=== PATIENT | female | born 1965 | race Caucasian/White ===

== ENCOUNTER 2016-10-05 06:15 | Emergency (ER) | payer SELFPAY ==
[~2016-10-05] VITALS: Ht 162.6 cm; Wt 97.1 kg
[~2016-10-05 06:15] MED LIST: BISO1TAB41; IBP600T1
[2016-10-05] MEDS ORDERED: LORazepam INJ 2 MG/ML (ATIVAN) VIAL ONE (06:21)
[2016-10-05] MEDS ORDERED: NS IV 1000 ML 1,000 ML ONE (06:21)
[2016-10-05 06:29] LABS: BASOPHILS % (AUTO) 0 % (0-10); EOSINOPHILS # (AUTO) 0.1 10^3/uL (0.0-0.3); EOSINOPHILS % (AUTO) 2 % (0-10); LYMPHOCYTES # (AUTO) 2.3 X 10^3 (1.0-4.0); LYMPHOCYTES % (AUTO) 26 % (12-44); MEAN CORPUSCULAR HEMOGLOBIN 29 PG (25-34); MEAN CORPUSCULAR HGB CONC 34 G/DL (32-36); MEAN CORPUSCULAR VOLUME 87 FL (80-99); MONOCYTES # (AUTO) 0.5 X 10^3 (0.0-1.0); MONOCYTES % (AUTO) 6 % (0-12); NEUTROPHILS % (AUTO) 67 % (42-75); PLATELET COUNT 322 10^3/uL (130-400); RED BLOOD COUNT 4.82 10^6/uL (4.35-5.85); WHITE BLOOD COUNT 9.1 10^3/uL (4.3-11.0)
[2016-10-05] MEDS ORDERED: NS 1000 ML IV BAG IV ONE (06:30)
[2016-10-05] MEDS ORDERED: LORazepam INJ 2 MG/ML (ATIVAN) VIAL IV ONE (06:30)
--- NOTE | 2016-10-05 06:38 | ED Neurological Problem ---
General Chief Complaint: Neurological Problems Stated Complaint: SEIZURE Source: patient, family, EMS Exam Limitations: no limitations History of Present Illness Time seen by provider: 06:15 Initial Comments Patient's eyes rolled back and patient began to shake all over 30 minutes prior to arrival. Symptoms lasted around a minute and patient was briefly confused but quickly came around. She was sitting at home when symptoms began. Symptoms recurred and family called 911. Patient was shaking in her extremities on arrival but was conscious. She did not have any injury such as a tongue laceration. She was not incontinent. Patient has been up for almost 24 hours. She has not eaten much. She has been drinking beer. She denies head trauma. She denies drug use. Paramedics gave intranasal Versed in route Allergies and Home Medications Allergies Coded Allergies: No Known Drug Allergies (Unverified Allergy, Mild, 04/01/09) Home Medications Bisoprol/Hydrochlorothiazide 1 Tab Tablet (Reported) Ibuprofen 600 Mg Tab (Reported) Constitutional: malaise weakness Eyes: No Symptoms Reported Ears, Nose, Mouth, Throat: no symptoms reported Respiratory: no symptoms reported Cardiovascular: no symptoms reported Musculoskeletal: no symptoms reported Psychiatric/Neurological: Tonic Clonic Seizures Weakness Endocrine: No Symptoms Reported All Other Systems Reviewed Negative Unless Noted: Yes Past Vwilvic-Qrozby-Owojeb Hx Patient Social History Recent Foreign Travel: No Contact w/Someone Who Travel: No Reviewed Nursing Assessment Reviewed/Agree w Nursing PMH: Yes Physical Exam Vital Signs Vital Sign - Last 12Hours 10/05/16 06:33 Temp 97.6 Pulse 97 Resp 14 Pulse Ox 96 O2 Delivery Nasal Cannula Capillary Refill : General Appearance: WD/WN mild distress other (jerking of legs, nonrhythmic. awake, answers questions) HEENT: pharynx normal Neck: supple Respiratory: lungs clear Cardiovascular: regular rate, rhythm Gastrointestinal: non tender soft Back: normal inspection Extremities: normal inspection Neurologic/Psychiatric: alert normal mood/affect Crainal Nerves: normal hearing normal speech PERRL Motor/Sensory: no motor deficit no sensory deficit Skin: normal color warm/dry Progress/Results/Core Measures Results/Orders Lab Results Laboratory Tests Test 10/05/16 06:20 10/05/16 07:10 Range/Units Acetaminophen Level < 10 L 10-30 UG/ML Alanine Aminotransferase (ALT/SGPT) 18 0-55 U/L Albumin 4.8 H 3.2-4.5 G/DL Alkaline Phosphatase 70 40-136 U/L Anion Gap 17 H 5-14 MMOL/L Aspartate Amino Transf (AST/SGOT) 19 5-34 U/L BUN/Creatinine Ratio 11 Basophils # (Auto) 0.0 0.0-0.1 10^3/uL Basophils (%) (Auto) 0 0-10 % Blood Urea Nitrogen 10 7-18 MG/DL Calcium Level 9.4 8.5-10.1 MG/DL Carbon Dioxide Level 20 L 21-32 MMOL/L Chloride Level 107 98-107 MMOL/L Creatinine 0.89 0.60-1.30 MG/DL Eosinophils # (Auto) 0.1 0.0-0.3 10^3/uL Eosinophils (%) (Auto) 2 0-10 % Estimat Glomerular Filtration Rate > 60 Glucose Level 117 H 70-105 MG/DL Hematocrit 42 35-52 % Hemoglobin 14.1 11.5-16.0 G/DL Lymphocytes # (Auto) 2.3 1.0-4.0 X 10^3 Lymphocytes (%) (Auto) 26 12-44 % Magnesium Level 2.8 H 1.8-2.4 MG/DL Mean Corpuscular Hemoglobin 29 25-34 PG Mean Corpuscular Hemoglobin Concent 34 32-36 G/DL Mean Corpuscular Volume 87 80-99 FL Mean Platelet Volume 10.0 7.4-10.4 FL Monocytes # (Auto) 0.5 0.0-1.0 X 10^3 Monocytes (%) (Auto) 6 0-12 % Neutrophils # (Auto) 6.0 1.8-7.8 X 10^3 Neutrophils (%) (Auto) 67 42-75 % Platelet Count 322 130-400 10^3/uL Potassium Level 3.9 3.6-5.0 MMOL/L Red Blood Count 4.82 4.35-5.85 10^6/uL Red Cell Distribution Width 14.0 10.0-14.5 % Salicylates Level < 5.0 L 5.0-20.0 MG/DL Serum Alcohol 189 H <10 MG/DL Sodium Level 144 135-145 MMOL/L Total Bilirubin 0.2 0.1-1.0 MG/DL Total Protein 8.5 H 6.4-8.2 G/DL White Blood Count 9.1 4.3-11.0 10^3/uL Ur Tricyclic Antidepressants Screen NEGATIVE NEGATIVE Urine Amphetamines Screen NEGATIVE NEGATIVE Urine Bacteria FEW H /HPF Urine Barbiturates Screen NEGATIVE NEGATIVE Urine Benzodiazepines Screen NEGATIVE NEGATIVE Urine Bilirubin NEGATIVE NEGATIVE Urine Cannabinoids Screen NEGATIVE NEGATIVE Urine Casts PRESENT /LPF Urine Clarity CLEAR Urine Cocaine Screen NEGATIVE NEGATIVE Urine Color YELLOW Urine Crystals NONE /LPF Urine Culture Indicated NO Urine Glucose (UA) NEGATIVE NEGATIVE Urine Granular Casts 5-10 H /LPF Urine Ketones NEGATIVE NEGATIVE Urine Leukocyte Esterase 1+ H NEGATIVE Urine Methadone Screen NEGATIVE NEGATIVE Urine Methamphetamines Screen NEGATIVE NEGATIVE Urine Mucus NEGATIVE /LPF Urine Nitrite NEGATIVE NEGATIVE Urine Opiates Screen NEGATIVE NEGATIVE Urine Oxycodone Screen NEGATIVE NEGATIVE Urine Phencyclidine Screen NEGATIVE NEGATIVE Urine Propoxyphene Screen NEGATIVE NEGATIVE Urine Protein 3+ H NEGATIVE Urine RBC 0-2 /HPF Urine RBC (Auto) 1+ H NEGATIVE Urine Specific [place] 1.020 1.016-1.022 Urine Squamous Epithelial Cells 2-5 /HPF Urine Urobilinogen NORMAL NORMAL MG/DL Urine WBC 2-5 /HPF Urine pH 5 5-9 My Orders Orders-ARNALDO VASQUEZ MD Acetaminophen (10/05/16 06:22) Alcohol (10/05/16 06:22) Cbc With Automated Diff (10/05/16 06:22) Comprehensive Metabolic Panel (10/05/16 06:22) Drug Screen Stat (Urine) (10/05/16 06:22) Magnesium (10/05/16 06:22) Salicylate (10/05/16 06:22) Ua Culture If Indicated (10/05/16 06:22) Ct Head Wo (10/05/16 06:22) Ns Iv 1000 Ml (Sodium Chloride 0.9%) (10/05/16 06:30) Lorazepam Injection (Ativan Injection) (10/05/16 06:30) Medications Given in ED Current Medications Medications Dose Ordered Sig/Colt Route Start Time Stop Time Status Last Admin Dose Admin Lorazepam 1 mg ONCE ONCE IV 10/05/16 06:30 10/05/16 06:31 DC 10/05/16 06:29 1 MG Sodium Chloride 1,000 ml ONCE ONCE IV 10/05/16 06:30 2 06:31 DC 10/05/16 06:29 1,000 ML Vital Signs/I&O Vital Sign - Last 12Hours 10/05/16 06:33 Temp 97.6 Pulse 97 Resp 14 B/P Pulse Ox 96 O2 Delivery Nasal Cannula Progress Note : Time: 07:25 Progress Note Symptoms improved after IV Ativan given in the ER. Awake alert no distress. Diagnostic Imaging Diagonstic Imaging: CT Plain Films/CT/US/NM/MRI: head Comments No acute disease Departure Communication Progress Notes 0745: Awake alert no apparent distress. No seizure activity while in the ER. Test results discussed with patient and family. Impression Impression: Primary Impression: Seizure Disposition: 01 HOME, SELF-CARE Condition: Stable Departure-Patient Inst. Decision time for Depature: 07:27 Referrals: MARYBEL GUTIERREZ MD (PCP) Primary Care Physician Patient Instructions: Seizures, Adult (DC) ARNALDO VASQUEZ MD Oct 05, 2016 06:38
[2016-10-05 06:56] LABS: ACETAMINOPHEN < 10 UG/ML (10-30); ALANINE AMINOTRANSFERASE 18 U/L (0-55); ALBUMIN 4.8 G/DL (3.2-4.5); ALCOHOL 189 MG/DL (<10); ANION GAP 17 MMOL/L (5-14); ASPARTATE AMINO TRANSFERASE 19 U/L (5-34); BILIRUBIN,TOTAL 0.2 MG/DL (0.1-1.0); BLOOD UREA NITROGEN 10 MG/DL (7-18); BUN/CREATININE RATIO 11; CALCIUM 9.4 MG/DL (8.5-10.1); CARBON DIOXIDE 20 MMOL/L (21-32); CHLORIDE 107 MMOL/L (98-107); CREATININE SERUM 0.89 MG/DL (0.60-1.30); GFR ESTIMATED > 60; GLUCOSE 117 MG/DL (70-105); MAGNESIUM 2.8 MG/DL (1.8-2.4); POTASSIUM 3.9 MMOL/L (3.6-5.0); SALICYLATE < 5.0 MG/DL (5.0-20.0); SODIUM 144 MMOL/L (135-145); TOTAL PROTEIN 8.5 G/DL (6.4-8.2)
[2016-10-05 07:24] LABS: BILIRUBIN,URINE NEGATIVE (NEGATIVE); KETONES,URINE NEGATIVE (NEGATIVE); LEUKOCYTE ESTERASE ,URINE 1+ (NEGATIVE); NITRITE,URINE NEGATIVE (NEGATIVE); PH,URINE 5 (5-9); PROTEIN,URINE 3+ (NEGATIVE); UROBILINOGEN,URINE NORMAL (NORMAL)
--- NOTE | 2016-10-05 08:01 | Diagnostic Imaging Report ---
PROCEDURE: CT head without contrast. TECHNIQUE: Multiple contiguous axial images were obtained through the brain without the use of intravenous contrast. INDICATION: Seizures. COMPARISON: None FINDINGS: Examination compromised by some patient motion artifact. There is no midline shift or mass effect. The ventricles and sulci are unremarkable. No evidence for acute intracranial hemorrhage, abnormal extra-axial fluid collections or cerebral edema is present. The basilar cisterns are unremarkable. The visualized paranasal sinuses and mastoid air cells are clear. The bony calvarium is intact. IMPRESSION: Negative appearing noncontrast CT of the head. If further assessment for potential seizure foci desired, MRI would be recommended. Dictated by: Dictated on workstation # [id number]
[2016-10-05 08:09] VITALS: BP 123/86
== END 2016-10-05 08:09 | disposition home or self-care (01) ==
LOC: EDUNIT# 06:15 → ER 06:20
DX: R56.9 Unspecified convulsions (principal); F10.129 Alcohol abuse with intoxication, unspecified; Y90.6 Blood alcohol level of 120-199 mg/100 ml
CPT/HCPCS: 36415; 70450; 80053; 80306; 80320; 80329; 81000; 83735; 85025; 96361; 96374

== ENCOUNTER → 2022-11-01 | Outpatient (CLI) | payer OTHER ==
--- NOTE | 2022-11-01 09:43 | Diagnostic Imaging Report ---
EXAMINATION: US Abdomen limited. TECHNIQUE: Multiple real-time grayscale images were obtained over the right lower quadrant in various projections. REASON FOR EXAM: Right lower quadrant/inguinal pain. Concern for hernia. COMPARISON: None. FINDINGS: Within the right inguinal region there appears to be a defect in the musculature of the inguinal canal with protrusion of soft tissue. No obvious loops of bowel are contained within this defect. IMPRESSION: 1. Findings suggestive of small fat-containing right inguinal hernia. No evidence of loops of bowel are seen within this defect. Recommend correlation with physical exam and follow-up as indicated. Dictated by: Dictated on workstation # [id number]
== END ==
LOC: RAD 06:47
PROVIDERS: ATTEND Surgery
DX: R10.31 Right lower quadrant pain (principal)
CPT/HCPCS: 76705

== ENCOUNTER 2022-11-24 05:28 | Outpatient (CLI) | payer OTHER ==
[~2022-11-24] VITALS: Ht 172.7 cm; Wt 90.3 kg
[2022-11-25] MEDS ORDERED: LEVO25CA4 PO (10:37)
[2022-11-25] MEDS ORDERED: DESV50TA PO (12:28)
[2022-11-25] MEDS ORDERED: ACET-3075 PO (12:28)
[2022-11-25] MEDS ORDERED: OMEP20TA33 PO (12:28)
== END 2022-11-25 12:51 | disposition home or self-care (01) ==
LOC: PREOP 05:28
PROVIDERS: ATTEND Surgery
DX: Z01.818 Encounter for other preprocedural examination (principal)

== ENCOUNTER 2022-12-01 07:00 | Day surgery (SDC) | payer OTHER ==
[2022-12-01] VITALS (11 sets, daily range): BP systolic 124–155; BP diastolic 81–111
[~2022-12-01] VITALS: Ht 172.7 cm; Wt 90.3 kg
[~2022-12-01 07:00] MED LIST changes: +ACET-3075 PO; +DESV50TA PO; +LEVO25CA4 PO; +OMEP20TA33 PO
[2022-12-01] MEDS ORDERED: BUP/EPI 0.5% 1:200,000 (SENSORCAINE) 30 ML VIAL ONE (07:13)
[2022-12-01] MEDS: LACTATED RINGERS 1,000 ML IV PRN ×2 (07:30→09:48)
[2022-12-01] MEDS ORDERED: ceFAZolin INJECTION 2,000 MG in NS (IVPB) 50 ML IV ONE (07:30)
[2022-12-01] MEDS ORDERED: fentaNYL INJ 100 MCG/2 ML AMP ONE (07:32)
[2022-12-01] MEDS ORDERED: MIDAZOLAM 2 MG/2 ML (VERSED) VIAL ONE (07:33)
--- NOTE | 2022-12-01 07:58 | Progress Note-Pre Operative ---
Pre-Operative Progress Note Date H&P Reviewed: Dec 01, 2022 Time H&P Reviewed: 07:45 History & Physical: H&P Reviewed, Patient Examed, No changes noted Pre-Operative Diagnosis: right inguinal hernia BUDDY DOSS DO Dec 01, 2022 07:58
[2022-12-01] MEDS ORDERED: BUP/EPI 0.5% 1:200,000 (SENSORCAINE) 30 ML VIAL INJ ONE (08:45)
[2022-12-01] MEDS ORDERED: LABETALOL HCL 20 MG/4 ML VIAL ONE (09:34)
[2022-12-01] MEDS ORDERED: NEOSTIGMINE (BLOXIVERZ ) 1 MG/1ML 10 ML VIAL ONE (09:34)
[2022-12-01] MEDS ORDERED: proPOfol 200 MG/20 ML (DIPRIVAN) VIAL IV ONE (09:34)
[2022-12-01] MEDS ORDERED: LIDOCAINE PF 2% 5 ML (XYLOCAINE) VIAL ONE (09:34)
[2022-12-01] MEDS ORDERED: GLYCOPYRROLATE 0.2 MG/ML (ROBINUL) 2 ML VIAL ONE (09:34)
[2022-12-01] MEDS ORDERED: ROCURONIUM 50 MG/5 ML (ZEMURON) VIAL IV ONE (09:34)
[2022-12-01] MEDS ORDERED: ONDANSETRON 4 MG/2 ML (SDV) Z0FRAN ONE (09:34)
[2022-12-01] MEDS ORDERED: SEVOFLURANE (ULTANE) 15 ML INHAL SOLN ONE (10:03)
--- NOTE | 2022-12-01 10:19 | Progress Note-Post Operative ---
Post-Operative Progess Note Surgeon (s)/Weigher And Grader (s) Surgeon BUDDY DOSS DO Weigher And Grader: Dr. Reed Pre-Operative Diagnosis right inguinal hernia Post-Operative Diagnosis incarcerated femoral hernia indirect inguinal hernia Procedure & Operative Findings Date of Procedure 12/01/22 Procedure Performed/Findings robotic right incarcerated femoral and indirect inguinal hernia repair Anesthesia Type general Estimated Blood Loss Estimated blood loss (mL): minimal Specimens/Packing Specimens Removed femoral hernia contents BUDDY DOSS DO Dec 01, 2022 10:19
--- NOTE | 2022-12-01 10:22 | Anesthesia-General Post-Op ---
General Patient Condition Mental Status/LOC: Same as Preop Cardiovascular: Satisfactory Nausea/Vomiting: Absent Respiratory: Satisfactory Pain: Controlled Complications: Absent Post Op Complications Complications None Follow Up Care/Instructions Patient Instructions None needed. Anesthesia/Patient Condition Patient Condition Patient is doing well, no complaints, stable vital signs, no apparent adverse anesthesia problems. No complications reported per nursing. DARY FULLER CRNA Dec 01, 2022 10:22
[2022-12-01] MEDS ORDERED: DOCU-143 PO (10:23)
[2022-12-01] MEDS ORDERED: ACHD5005 PO (10:23)
--- NOTE | 2022-12-01 10:24 | Discharge Inst-Simple/Standard ---
Discharge Inst-Standard Discharge Medications New, Converted or Re-Newed RX: Transmitted to Pharmacy Patient Instructions/Follow Up Plan of Care/Instructions/FU: 2 weeks kacey Activity as Tolerated: No Discharge Diet: Regular Diet Other Inst to Patient Follow up Appt: Make appointment for 2 week. Instructions: No lifting greater than 10 pounds. No strenuous activity. May shower in 24 hours, no tub bath or soaking. Use incentive spirometer at home as directed. No Smoking Skin/Wound Care: You have special glue over your incision that will fall off on it's own. Symptoms to Report: Appetite Changes, Extremity Discoloration, Numbness/Tingling, Swelling Increased, Bleeding Excessive, Eyesight Changes, Pain Increased, Urine Color Change, Constipation(Persistent), Fever over 101 degree F, Pain/Pressure in chest, Urinating Difficulty, Cough Up/Vomit Blood, Heart Beat Irreg/Pounding, Pain/Pressure in jaw, Vaginal Bleeding Increase, Cramps in feet or legs, Lightheadedness, Pain/Pressure in shoulder, Diarrhea(Persistent), Memory Changes Suddenly, Questions/Concerns, Weight gain consecutive days, Dizziness/Fainting, Nausea/Vomiting, Shortness of Breath, Weight gain over 2 pounds If questions or concerns contact your physician Or seek help at emergency department. BUDDY DOSS DO Dec 01, 2022 10:24
[2022-12-01] MEDS ORDERED: morphine INJ 10 MG/ML 1ML (SYR OR VIAL) IVP ONE (10:30)
[2022-12-01] MEDS ORDERED: ONDANSETRON 4 MG/2 ML (SDV) Z0FRAN IVP PRN (10:30)
[2022-12-01] MEDS ORDERED: fentaNYL INJ 100 MCG/2 ML AMP IVP ONE (10:30)
[2022-12-01] MEDS ORDERED: HYDROcodone/APAP 5 MG/325 MG (LORTAB) TAB PO ONE (11:30)
--- NOTE | 2022-12-02 15:17 | OPERATIVE REPORT ---
DATE OF SERVICE: 12/01/2022 PREOPERATIVE DIAGNOSIS: Right inguinal hernia. POSTOPERATIVE DIAGNOSIS: Right incarcerated femoral hernia and indirect inguinal hernia. PROCEDURE: Robotic right incarcerated femoral and indirect inguinal hernia repair. SURGEON: Buddy Melendez DO ENTRY MANAGER: Aman Reed DO, assisted in retraction, dissection, and closure. ANESTHESIA: General. ESTIMATED BLOOD LOSS: Minimal. COMPLICATIONS: None. SPECIMENS: Femoral hernia contents. INDICATIONS: The patient is a 57-year-old female with a right inguinal hernia. She has discomfort. She understands risks and benefits of procedure and wishes to proceed. Consent was signed in chart. DESCRIPTION OF PROCEDURE: The patient was taken to the operating suite, prepped and draped in sterile fashion. Timeout was performed. Local anesthetic was infiltrated above the umbilicus, 11 blade scalpel was used to make a small skin incision. Cautery and blunt dissection was used to take down the fascia, which was then scored and elevated, opened and the abdomen was then entered. An 0 Vicryl placed in [id number] fashion for closure at the end of the case. A weiss trocar was inserted. Pneumoperitoneum was achieved. Under direct visualization of laparoscope, two 8 mm trocars were placed, one in the right side and one on the left side. The patient was placed in approximately 15-17 degrees Trendelenburg. The robot was then docked. Small indirect hernia visualized on the right side. Using cautery, scissors, the peritoneum was then taken down and continued to do blunt dissection all the way down to the Refugio's ligament and also laterally, taking these down. There was femoral hernia present with incarcerated fat. This was grasped and carefully dissected free and removed. Continue to free up the peritoneum laterally. The indirect hernia sac was then dissected off and the round ligament was divided. A good pocket was created. A Bard mesh was then inserted and secured to Refugio's ligament with 3-0 Vicryl. Also laterally and superior mesh was attached to the abdominal wall. Having good coverage inferiorly due to the dissection being approximately 2 cm below the Refugio's ligament and lateral. The peritoneum was then closed using 3-0 V-Loc. The specimen was obtained. The robot was then undocked. The trocars were removed. The 0 Vicryl placed in [id number] fashion first, the case was then tied. The skin was then closed using 4-0 Monocryl in subcuticular fashion and the abdomen was washed and dried and skin Affix was placed over the incisions. The patient tolerated the procedure well without any complications, taken to recovery room in stable condition. Job ID: [id number] DocumentID: [id number] Dictated Date: 12/02/2022 09:14:42 Helicopter Officer Date: 12/02/2022 15:14:00 Dictated By: BUDDY MELENDEZ DO
== END 2022-12-01 12:30 | disposition home or self-care (01) ==
LOC: SDC 07:00
PROVIDERS: ATTEND Surgery
DX: K40.90 Unilateral inguinal hernia, without obstruction or gangrene, not specified as recurrent (principal); K41.30 Unilateral femoral hernia, with obstruction, without gangrene, not specified as recurrent; F17.210 Nicotine dependence, cigarettes, uncomplicated; K21.9 Gastro-esophageal reflux disease without esophagitis; E66.9 Obesity, unspecified; Z68.30 Body mass index [BMI] 30.0-30.9, adult; Z28.310 Unvaccinated for COVID-19
CPT/HCPCS: 49650; 49659; 87081; C1781